=== PATIENT | female | born 1940 | race American Indian/Alaskan Native ===

== ENCOUNTER 2017-07-11 02:09 | Emergency (ER) | payer MEDICARE ==
[2017-07-11] MEDS ORDERED: NACL 0.9% 500 ML 500 ML IV ONE (02:20)
[2017-07-11] MEDS ORDERED: NACL 0.9% 500 ML 500 ML ONE (02:25)
[2017-07-11] MEDS ORDERED: LEVOPHED DRIP 4 MG/NS 250 ML 4 MG/250 ML BAG IV ONE (02:25)
--- NOTE | 2017-07-11 02:29 | Emergency Department Report ---
ED CPR HPI - General Stated Complaint: CARDIAC ARREST Time Seen by Provider: 07/11/17 02:25 - History of Present Illness Initial Comments: History is limited by acuity of condition. History obtained by EMS patient was seen by son talking earlier on today around 9 PM heard daughter went on to check on her and around 1:30 AM she became unresponsive and EMS was called. They intubated the patient and then they shocked the patient is a patient having V. fib arrest, patient has a history of heart failure. She has gotten 15 minutes of CPR prior to arrival. - Related Data Home Medications Medication Instructions Recorded Confirmed Last Taken Lisinopril [Zestril TAB] 20 mg PO DAILY 10/22/16 10/23/16 10/18/16 Simvastatin [Zocor TAB] 40 mg PO QHS 10/22/16 10/22/16 10/18/16 Previous Rx's Medication Instructions Recorded Last Taken Type Carvedilol [Coreg] 6.25 mg PO BID #30 tablet 10/23/16 Unknown Rx Furosemide [Lasix TAB] 40 mg PO QDAY #30 tablet 10/23/16 Unknown Rx Lisinopril [Zestril TAB] 20 mg PO QDAY #30 tablet 10/23/16 Unknown Rx Potassium Chloride [K-Dur] 20 meq PO BID #30 tablet 10/23/16 Unknown Rx Simvastatin [Zocor TAB] 10 mg PO QHS #30 tablet 10/23/16 Unknown Rx amLODIPine [Norvasc] 5 mg PO DAILY #30 tablet 10/23/16 Unknown Rx Allergies Allergy/AdvReac Type Severity Reaction Status Date / Time No Known Allergies Allergy Verified 10/20/16 03:44 ED Review of Systems ROS: Stated complaint: CARDIAC ARREST Other details as noted in HPI Comment: Unobtainable due to pts medical conditions (acuity of condition) ED Past Medical Hx - Past Medical History Hx Hypertension: Yes Hx Congestive Heart Failure: Yes - Social History Smoking Status: Never Smoker - Medications Home Medications: Home Medications Medication Instructions Recorded Confirmed Last Taken Type Lisinopril [Zestril TAB] 20 mg PO DAILY 10/22/16 10/23/16 10/18/16 History Simvastatin [Zocor TAB] 40 mg PO QHS 10/22/16 10/22/16 10/18/16 History Carvedilol [Coreg] 6.25 mg PO BID #30 tablet 10/23/16 Unknown Rx Furosemide [Lasix TAB] 40 mg PO QDAY #30 tablet 10/23/16 Unknown Rx Lisinopril [Zestril TAB] 20 mg PO QDAY #30 tablet 10/23/16 Unknown Rx Potassium Chloride [K-Dur] 20 meq PO BID #30 tablet 10/23/16 Unknown Rx Simvastatin [Zocor TAB] 10 mg PO QHS #30 tablet 10/23/16 Unknown Rx amLODIPine [Norvasc] 5 mg PO DAILY #30 tablet 10/23/16 Unknown Rx ED Physical Exam - General Limitations: Physical Limitation (physical exam is limited due to acuity of condition) General appearance: obtunded - Head Head exam: Present: normocephalic - Eye Eye exam: Present: other (pupils fixed and dilated) - Respiratory Respiratory exam: Present: other (breath sounds bilaterally on patient being intubated) - GI/Abdominal GI/Abdominal exam: Present: soft - Skin Skin exam: Present: other (cool skin ) ED Course Vital Signs 07/11/17 07/11/17 02:17 02:55 Temperature 97.5 F L Pulse Rate 125 H 94 H Respiratory 16 Rate Blood Pressure 91/59 O2 Sat by Pulse 100 Oximetry - Consultations Consultation #1: 07/11/17 02:[address] Sherman about patient have a STEMI I will obtain a second EKG and will contact Dr. Sherman. ED Medical Decision Making - Lab Data Result diagrams: 07/11/17 02:21 07/11/17 02:21 Lab Results 07/11/17 07/11/17 07/11/17 Range/Units 02:14 02:21 02:21 WBC 7.9 (4.5-11.0) K/mm3 RBC 3.56 L (3.65-5.03) M/mm3 Hgb 10.7 (10.1-14.3) gm/dl Hct 33.4 (30.3-42.9) % MCV 94 (79-97) fl MCH 30 (28-32) pg MCHC 32 (30-34) % RDW 15.3 H (13.2-15.2) % Plt Count 125 L (140-440) K/mm3 Add Manual Diff Complete Total Counted 100 Seg Neuts % (Manual) 59.0 (40.0-70.0) % Band Neutrophils % 8.0 % Lymphocytes % (Manual) 26.0 (13.4-35.0) % Reactive Lymphs % (Man) 0 % Monocytes % (Manual) 7.0 (0.0-7.3) % Eosinophils % (Manual) 0 (0.0-4.3) % Basophils % (Manual) 0 (0.0-1.8) % Metamyelocytes % 0 % Myelocytes % 0 % Promyelocytes % 0 % Blast Cells % 0 % Nucleated RBC % Not Reportable Seg Neutrophils # Man 4.7 (1.8-7.7) K/mm3 Band Neutrophils # 0.6 K/mm3 Lymphocytes # (Manual) 2.1 (1.2-5.4) K/mm3 Abs React Lymphs (Man) 0.0 K/mm3 Monocytes # (Manual) 0.6 (0.0-0.8) K/mm3 Eosinophils # (Manual) 0.0 (0.0-0.4) K/mm3 Basophils # (Manual) 0.0 (0.0-0.1) K/mm3 Metamyelocytes # 0.0 K/mm3 Myelocytes # 0.0 K/mm3 Promyelocytes # 0.0 K/mm3 Blast Cells # 0.0 K/mm3 WBC Morphology Not Reportable Hypersegmented Neuts Not Reportable Hyposegmented Neuts Not Reportable Hypogranular Neuts Not Reportable Smudge Cells Not Reportable Toxic Granulation Not Reportable Toxic Vacuolation Not Reportable Dohle Bodies Not Reportable Pelger-Huet Anomaly Not Reportable Kala Rods Not Reportable Platelet Estimate Consistent w auto Clumped Platelets Not Reportable Plt Clumps, EDTA Not Reportable Large Platelets Not Reportable Giant Platelets Not Reportable Platelet Satelliting Not Reportable Plt Morphology Comment Not Reportable RBC Morphology Not Reportable Dimorphic RBCs Not Reportable Polychromasia 1+ Hypochromasia Not Reportable Poikilocytosis Not Reportable Anisocytosis 1+ Microcytosis Not Reportable Macrocytosis Not Reportable Spherocytes Not Reportable Pappenheimer Bodies Not Reportable Sickle Cells Not Reportable Target Cells Not Reportable Tear Drop Cells Not Reportable Ovalocytes Not Reportable Helmet Cells Not Reportable Subramanian-Old [place] Bodies Not Reportable [place] Rings Not Reportable Marcelina Cells Not Reportable Bite Cells Not Reportable Crenated Cell Not Reportable Elliptocytes Not Reportable Acanthocytes (Spur) Not Reportable Rouleaux Not Reportable Hemoglobin C Crystals Not Reportable Schistocytes Not Reportable Malaria parasites Not Reportable Angel Bodies Not Reportable Hem Pathologist Commnt No PT (12.2-14.9) Sec. INR (0.87-1.13) APTT (24.2-36.6) Sec. Sodium 147 H (137-145) mmol/L Potassium 3.6 (3.6-5.0) mmol/L Chloride 98.8 (98-107) mmol/L Carbon Dioxide 21 L (22-30) mmol/L Anion Gap 31 mmol/L BUN 20 H (7-17) mg/dL Creatinine 1.7 H (0.7-1.2) mg/dL Estimated GFR 35 ml/min BUN/Creatinine Ratio 11.76 % Glucose 305 H (65-100) mg/dL POC Glucose 326 H (70-105) Calcium 8.2 L (8.4-10.2) mg/dL Total Bilirubin 0.50 (0.1-1.2) mg/dL AST 69 H (5-40) units/L ALT 94 H (7-56) units/L Alkaline Phosphatase 56 (35-129) units/L Total Creatine Kinase (30-135) units/L CK-MB (CK-2) (0.0-4.0) ng/mL CK-MB (CK-2) Rel Index (0-4) Troponin T 0.684 H* (0.00-0.029) ng/mL Total Protein 6.0 L (6.3-8.2) g/dL Albumin 3.1 L (3.9-5) g/dL Albumin/Globulin Ratio 1.1 % Triglycerides 135 (2-149) mg/dL Cholesterol 185 (50-199) mg/dL LDL Cholesterol Direct 100 (50-130) mg/dL HDL Cholesterol 58 (40-59) mg/dL Cholesterol/HDL Ratio 3.18 % Blood Type Antibody Screen 07/11/17 07/11/17 07/11/17 Range/Units 03:00 03:00 03:00 WBC (4.5-11.0) K/mm3 RBC (3.65-5.03) M/mm3 Hgb (10.1-14.3) gm/dl Hct (30.3-42.9) % MCV (79-97) fl MCH (28-32) pg MCHC (30-34) % RDW (13.2-15.2) % Plt Count (140-440) K/mm3 Add Manual Diff Total Counted Seg Neuts % (Manual) (40.0-70.0) % Band Neutrophils % % Lymphocytes % (Manual) (13.4-35.0) % Reactive Lymphs % (Man) % Monocytes % (Manual) (0.0-7.3) % Eosinophils % (Manual) (0.0-4.3) % Basophils % (Manual) (0.0-1.8) % Metamyelocytes % % Myelocytes % % Promyelocytes % % Blast Cells % % Nucleated RBC % Seg Neutrophils # Man (1.8-7.7) K/mm3 Band Neutrophils # K/mm3 Lymphocytes # (Manual) (1.2-5.4) K/mm3 Abs React Lymphs (Man) K/mm3 Monocytes # (Manual) (0.0-0.8) K/mm3 Eosinophils # (Manual) (0.0-0.4) K/mm3 Basophils # (Manual) (0.0-0.1) K/mm3 Metamyelocytes # K/mm3 Myelocytes # K/mm3 Promyelocytes # K/mm3 Blast Cells # K/mm3 WBC Morphology Hypersegmented Neuts Hyposegmented Neuts Hypogranular Neuts Smudge Cells Toxic Granulation Toxic Vacuolation Dohle Bodies Pelger-Huet Anomaly Kala Rods Platelet Estimate Clumped Platelets Plt Clumps, EDTA Large Platelets Giant Platelets Platelet Satelliting Plt Morphology Comment RBC Morphology Dimorphic RBCs Polychromasia Hypochromasia Poikilocytosis Anisocytosis Microcytosis Macrocytosis Spherocytes Pappenheimer Bodies Sickle Cells Target Cells Tear Drop Cells Ovalocytes Helmet Cells Subramanian-Old [place] Bodies [place] Rings Marcelina Cells Bite Cells Crenated Cell Elliptocytes Acanthocytes (Spur) Rouleaux Hemoglobin C Crystals Schistocytes Malaria parasites Angel Bodies Hem Pathologist Commnt PT > 120.0 H (12.2-14.9) Sec. INR > 17.67 H* (0.87-1.13) APTT > 240.0 H* (24.2-36.6) Sec. Sodium (137-145) mmol/L Potassium (3.6-5.0) mmol/L Chloride (98-107) mmol/L Carbon Dioxide (22-30) mmol/L Anion Gap mmol/L BUN (7-17) mg/dL Creatinine (0.7-1.2) mg/dL Estimated GFR ml/min BUN/Creatinine Ratio % Glucose (65-100) mg/dL POC Glucose (70-105) Calcium (8.4-10.2) mg/dL Total Bilirubin (0.1-1.2) mg/dL AST (5-40) units/L ALT (7-56) units/L Alkaline Phosphatase (35-129) units/L Total Creatine Kinase 1139 H (30-135) units/L CK-MB (CK-2) 11.4 H (0.0-4.0) ng/mL CK-MB (CK-2) Rel Index 1.0 (0-4) Troponin T (0.00-0.029) ng/mL Total Protein (6.3-8.2) g/dL Albumin (3.9-5) g/dL Albumin/Globulin Ratio % Triglycerides (2-149) mg/dL Cholesterol (50-199) mg/dL LDL Cholesterol Direct (50-130) mg/dL HDL Cholesterol (40-59) mg/dL Cholesterol/HDL Ratio % Blood Type O POSITIVE Antibody Screen Negative - EKG Data -: EKG Interpreted by Nm - EKG Data 07/11/17 06:[address] segment elevations in V6 V5 and V4 and ST segment depressions in leads 2 and 3 concerning for acute STEMI. - Medical Decision Making Chief medical diagnosis: V. fib arrest Patient has a threatening condition will require IV epi IV bicarbonate IV calcium IV amiodarone pacer pads and spinner box consult due to concern for STEMI Patient endured several rounds of CPR Code documentation for further details. He should receive approximately 60 minutes of CPR. Patient had ROSC inbetween sessions of CPR but only for ~ 5-10 minutes. Cardiac catheterization was called when patient was stabilized after a couple rounds of CPR and able to get a second EKG. Discussed with Dr. Sherman. Patient was placed on dobutamine, levophed and given multiple shocks and doses of amiodarone. The patient was not eligible for the shrimp pond laborer due to requiring somewhat CPR. It was discussed that further care is medically futile. After another round of CPR ED bedside ultrasound was performed. It showed ED cardiac ultrasound: Shows cardiac standstill Time of was called at 03:30 patient's family was informed. Had conversation with the patient's family with Dr. Sherman. Critical Care Time: Yes (80) Critical care time in (mins) excluding proc time.: 80 Critical care attestation.: If time is entered above; I have spent that time in minutes in the direct care of this critically ill patient, excluding procedure time. Time spent with the patient 50 minutes time spent discussing with the patient's family 10 minutes I'm reviewing old records 10 minutes Time spent with senior solutions workflow consultant service 10 minutes Time spent reviewling labs 0 minutes ED Disposition Clinical Impression: Cardiac arrest STEMI (ST elevation myocardial infarction) Qualifiers: Involved coronary artery: unspecified coronary artery Qualified Code(s): I21.3 - ST elevation (STEMI) myocardial infarction of unspecified site Respiratory failure Qualifiers: Chronicity: acute Respiratory failure complication: hypoxia and hypercapnia Qualified Code(s): J96.01 - Acute respiratory failure with hypoxia; J96.02 - Acute respiratory failure with hypercapnia Disposition: DC-20 Is pt being admited?: No Does the pt Need Aspirin: No Condition: Serious Referrals: PRIMARY CARE,MD [Primary Care Provider] - 3-5 Days
[2017-07-11 02:30] VITALS: BP 91/59
[2017-07-11] MEDS ORDERED: CORDARONE IV ONE ×2 (02:30→11:12)
[2017-07-11 02:35] LABS: Hematocrit 33.4 % (30.3-42.9); Hemoglobin 10.7 gm/dl (10.1-14.3); Mean Corpuscular HGB Conc 32 % (30-34); Mean Corpuscular Hemoglobin 30 pg (28-32); Mean Corpuscular Volume 94 fl (79-97); Platelet Count 125 K/mm3 (140-440); Red Blood Count 3.56 M/mm3 (3.65-5.03); Red Cell Distribution Width 15.3 % (13.2-15.2); White Blood Count 7.9 K/mm3 (4.5-11.0)
[2017-07-11] MEDS ORDERED: LEVOPHED DRIP 4 MG/NS 250 ML 4 MG/250 ML BAG IV SCH (02:45)
[2017-07-11] MEDS ORDERED: INTROPIN DRIP 800 MG/D5W 250 ML 800 MG/250 ML BAG IV ONE (02:50)
[2017-07-11] MEDS ORDERED: NACL 0.9% 1000 ML 1,000 ML IV ONE (02:56)
[2017-07-11 02:59] LABS: Albumin 3.1 g/dL (3.9-5); BUN/Creatinine Ratio 11.76; Bilirubin,Total 0.5 mg/dL (0.1-1.2); Calcium 8.2 mg/dL (8.4-10.2)
[2017-07-11 03:00] LABS: Albumin/Globulin Ratio 1.1 %; Chloride 98.8 mmol/L (98-107); Potassium 3.6 mmol/L (3.6-5.0)
[2017-07-11] MEDS ORDERED: HEPARIN/ 0.45% NACL-25,000 UNIT/500 ML 25,000 UNIT/500 ML BAG IV SCH (03:00)
[2017-07-11 03:42] LABS: Creatine Kinase MB 11.4 ng/mL (0.0-4.0)
--- NOTE | 2017-07-11 03:50 | Consultation ---
Medications and Allergies Allergies Allergy/AdvReac Type Severity Reaction Status Date / Time No Known Allergies Allergy Verified 10/20/16 03:44 Home Medications Medication Instructions Recorded Confirmed Last Taken Type Lisinopril [Zestril TAB] 20 mg PO DAILY 10/22/16 10/23/16 10/18/16 History Simvastatin [Zocor TAB] 40 mg PO QHS 10/22/16 10/22/16 10/18/16 History Carvedilol [Coreg] 6.25 mg PO BID #30 tablet 10/23/16 Unknown Rx Furosemide [Lasix TAB] 40 mg PO QDAY #30 tablet 10/23/16 Unknown Rx Lisinopril [Zestril TAB] 20 mg PO QDAY #30 tablet 10/23/16 Unknown Rx Potassium Chloride [K-Dur] 20 meq PO BID #30 tablet 10/23/16 Unknown Rx Simvastatin [Zocor TAB] 10 mg PO QHS #30 tablet 10/23/16 Unknown Rx amLODIPine [Norvasc] 5 mg PO DAILY #30 tablet 10/23/16 Unknown Rx Active Meds: Active Medications Heparin Sodium/Sodium Chloride (Heparin/ 0.45% Nacl-25,000 Unit/500 Ml) 25,000 unit in 500 mls @ 20 mls/hr IV TITRATE CHALINO; 1,000 UNITS/HR PRN Reason: Protocol Sodium Chloride (Nacl 0.9% 1000 Ml) 1,000 mls @ 42 mls/hr IV ONCE ONE Stop: 07/12/17 02:44 Physical Examination Vital Signs Temp Pulse Resp BP 97.5 F L 125 H 16 91/59 07/11/17 02:17 07/11/17 02:17 07/11/17 02:17 07/11/17 02:17 Results 07/11/17 02:21 07/11/17 02:21 Cardiac Enzymes 07/11/17 Range/Units 02:21 AST 69 H (5-40) units/L Lipids 07/11/17 Range/Units 02:21 Triglycerides 135 (2-149) mg/dL Cholesterol 185 (50-199) mg/dL HDL Cholesterol 58 (40-59) mg/dL Cholesterol/HDL Ratio 3.18 % CBC 07/11/17 Range/Units 02:21 WBC 7.9 (4.5-11.0) K/mm3 RBC 3.56 L (3.65-5.03) M/mm3 Hgb 10.7 (10.1-14.3) gm/dl Hct 33.4 (30.3-42.9) % Plt Count 125 L (140-440) K/mm3 Comprehensive Metabolic Panel 07/11/17 Range/Units 02:21 Sodium 147 H (137-145) mmol/L Potassium 3.6 (3.6-5.0) mmol/L Chloride 98.8 (98-107) mmol/L Carbon Dioxide 21 L (22-30) mmol/L BUN 20 H (7-17) mg/dL Creatinine 1.7 H (0.7-1.2) mg/dL Glucose 305 H (65-100) mg/dL Calcium 8.2 L (8.4-10.2) mg/dL AST 69 H (5-40) units/L ALT 94 H (7-56) units/L Alkaline Phosphatase 56 (35-129) units/L Total Protein 6.0 L (6.3-8.2) g/dL Albumin 3.1 L (3.9-5) g/dL Assessment and Plan Called for evaluation of patient who has a history of non-ischemic cardiomyopathy. Patient presented to the ER via EMS. She was found down at home. Last known time that she was awake and aleart was 930 pm. The patient's daughter went to her mother's room and found her unresponsive at 130 am. EMS was called. Reportedly, EMS found the patient in vfib arrest. The patient was coded with multiple shocks on the way to the ER. The patient was subsequently coded in the ER. The patient was intubated and started on multiple pressors. Initial EKG showed junctional rhythm with slurred ST segment with retrograde atrial activation. The patient subsequently coded again. Subsequent EKG showed sinus rhythm with diffuse ST elevation anteriorly and ST segment depression inferiorly. At this time, the laboratory mechanic helper was activated. However, prior to the patient being able to be transported to the laboratory mechanic helper, the patient went into PEA arrest. The patient was coded. On my arrival, I quickly assessed the patient. I then discussed the extremely poor prognosis with the family, who verbalized understanding. On return to the patient, the patient was still unstable and actively being coded. I evaluated the patient, who was intubated, on multiple pressors, and non-responsive without sedation. When compressions were halted, I performed a bedside echo. Echo showed ventricular standstill. At this time, it was decided that further therapy was medically futile. The code was called. The patient was pronounced at 0330.
[2017-07-11 04:12] LABS: INR > 17.67 (0.87-1.13); Partial Thromboplastin Time > 240.0 Sec. (24.2-36.6)
[2017-07-11 05:59] LABS: Anisocytosis 1+; Basophils % (Manual) 0 % (0.0-1.8); Blastocytes % (Manual) 0 %; Diff Status Complete; Eosinophils % (Manual) 0 % (0.0-4.3); Platelet Estimate Consistent w Auto; Polychromasia 1+
--- NOTE | 2017-07-11 08:49 | XRay Report ---
PORTABLE CHEST INDICATION: Evaluate ETT. COMPARISON: 10/19/2016 FINDINGS: Portable, frontal chest radiograph demonstrates new endotracheal tube tip approximately 1-1.5 cm above the denilson. Lungs now clear without pleural effusion or CHF. Slight cardiomegaly. Aortic knob calcifications. EKG leads and a defibrillator pad overlying the right chest noted. Intact bones. CONCLUSION: 1. Interval intubation, as described. Endotracheal tube may be retracted by approximately 2-3 cm for more optimal placement, if so appropriate. 2. Interval resolution of CHF. Slight cardiomegaly remains. Thank you for the opportunity to participate in this patient's care.
[2017-07-11] MEDS ORDERED: ATROPINE 0.1% (CARDIAC) ONE (11:12)
[2017-07-11] MEDS ORDERED: INTROPIN DRIP 800 MG/D5W 250 ML IV ONE (11:12)
[2017-07-11] MEDS ORDERED: SODIUM BICARBONATE IV ONE (11:12)
[2017-07-11] MEDS ORDERED: CALCIUM CHLORIDE IV ONE (11:12)
[2017-07-11] MEDS ORDERED: ADRENALIN ONE (11:12)
== END 2017-07-11 05:51 ==
LOC: ED 02:09
DX: I46.9 Cardiac arrest, cause unspecified (principal); I21.3 ST elevation (STEMI) myocardial infarction of unspecified site; J96.01 Acute respiratory failure with hypoxia; I10 Essential (primary) hypertension
CPT/HCPCS: 36415; 71010; 80053; 80061; 82550; 82553; 82962; 84484; 85007; 85025; 85610; 85730; 86850; 86900; 86901; 92950; 93005; 93010; 99291; 99292; J0171; J0282; J0461; J1265; J7040; 94002